=== PATIENT | male | born 1975 | race Caucasian/White ===

== ENCOUNTER 2017-11-30 06:19 | Emergency (ER) | payer SELFPAY ==
[~2017-11-30] VITALS: Ht 188 cm; Wt 92.1 kg
[2017-11-30 06:21] VITALS: BP 145/86
[2017-11-30] MEDS ORDERED: DIAZEPAM 5 MG TABLET ONE (06:39)
[2017-11-30] MEDS ORDERED: KETOROLAC 30 MG/1 ML ONE (06:39)
[2017-11-30] MEDS ORDERED: DIAZEPAM 5 MG TABLET PO ONE (07:00)
[2017-11-30] MEDS ORDERED: KETOROLAC 30 MG/1 ML IM ONE (07:00)
== END 2017-11-30 08:38 | disposition home or self-care (01) ==
LOC: ED 08:10
DX: S39.012A Strain of muscle, fascia and tendon of lower back, initial encounter (principal); S80.01XA Contusion of right knee, initial encounter; M51.36 Other intervertebral disc degeneration, lumbar region; F17.210 Nicotine dependence, cigarettes, uncomplicated; W01.0XXA Fall on same level from slipping, tripping and stumbling without subsequent striking against object, initial encounter; Y93.89 Activity, other specified; Y92.009 Unspecified place in unspecified non-institutional (private) residence as the place of occurrence of the external cause; Y99.8 Other external cause status
CPT/HCPCS: 72110; 73564; 96372; 99284; J1885

== ENCOUNTER 2018-11-03 11:40 | Emergency (ER) | payer BC ==
[~2018-11-03] VITALS: Ht 188 cm; Wt 91.0 kg
[2018-11-03 11:56] VITALS: BP 130/81
--- NOTE | 2018-11-03 12:10 | NUR ---
PT HERE FOR RIGHT HAND INJURY. PT REPORTS TRAUMA TO HAND. PT DENIES CRUSH INJURY. PT HAS GOOD CAP REFILL WELL.
--- NOTE | 2018-11-03 13:06 | NUR ---
Patient/Caregiver given discharge instructions and they have confirmed that they understand the instructions. Patient ambulatory with steady gait.
== END 2018-11-03 13:31 | disposition home or self-care (01) ==
LOC: ED 13:21
DX: S62.356A Nondisplaced fracture of shaft of fifth metacarpal bone, right hand, initial encounter for closed fracture (principal); Z86.14 Personal history of Methicillin resistant Staphylococcus aureus infection; Z87.891 Personal history of nicotine dependence; Z90.49 Acquired absence of other specified parts of digestive tract; W22.03XA Walked into furniture, initial encounter; Y93.89 Activity, other specified; Y92.009 Unspecified place in unspecified non-institutional (private) residence as the place of occurrence of the external cause; Y99.8 Other external cause status
CPT/HCPCS: 29125; 99283

== ENCOUNTER 2020-09-26 05:50 | Emergency (ER) | payer BC ==
[~2020-09-26] VITALS: Ht 188 cm; Wt 90.3 kg
--- NOTE | 2020-09-26 06:50 | NUR ---
REPORT FROM MAXIMO, RN
[2020-09-26 08:06] VITALS: BP 93/63
--- NOTE | 2020-09-26 08:20 | NUR ---
PT REC'VD DISCHARGE INSTRUCTION AND EDUCATION. PT HAD NO FURTHER QUESTIONS. RIGHT ARM SLING IN PLACE WITH INSTRUCTIONS PROVIDED BY TECH. PT AMBULATED TO DC AREA, STEADY GAIT.
== END 2020-09-26 08:24 | disposition home or self-care (01) ==
LOC: ED 06:29
DX: S50.01XA Contusion of right elbow, initial encounter (principal); Z90.89 Acquired absence of other organs; X58.XXXA Exposure to other specified factors, initial encounter; Y93.89 Activity, other specified; Y92.69 Other specified industrial and construction area as the place of occurrence of the external cause; Y99.0 Civilian activity done for income or pay
CPT/HCPCS: 99283